=== PATIENT | male | born 1970 | race African-American/Black ===

== ENCOUNTER 2020-10-07 17:37 | Inpatient (IN) ==
[2020-10-07] MEDS ORDERED: OPTIRAY 320 125ml IV ONE (17:49)
--- NOTE | 2020-10-07 17:52 | Emergency Department Note ---
Impression & Plan Acute cerebrovascular accident, Expressive aphasia, Acute right-sided weakness, COVID-19 virus infection, Received intravenous tissue plasminogen activator (tPA) in emergency department ED Provider Note NAME: NIRMAL [id number] WINTERS AGE: 50 SEX: M : 1970 ARRIVES VIA: Ambulance INFORMANT: Patient, EMS, nurse at present ED PROVIDER(S): Kaden Hopper DO CHIEF COMPLAINT: Right-sided weakness and expressive aphasia HPI: Patient is a 50-year-old male who presents to the ER for sudden onset of right upper and right lower extremity weakness which occurred at 4:45 PM today. Is also accompanied with expressive aphasia. He has only been able to intermittently answer yes and no but not appropriately. Remainder of HPI is unobtainable secondary to mentation. Per nurse at retirement patient's only history is osteoarthritis of the right shoulder and he takes no medications. ROS: Unobtainable secondary to mentation PAST MEDICAL HISTORY:none PAST SURGICAL HISTORY:none FAMILY HISTORY:See Below SOCIAL HISTORY:See Below HOME MEDICATIONS:See Below ALLERGIES:See Below VITALS:See Below PHYSICAL EXAMINATION: GENERAL: Sitting up in bed, alert, well appearing, well nourished, no distress, non-toxic EYE EXAM: normal conjunctiva. PERRL and EOM's intact. OROPHARYNX: no exudate, no erythema, lips, buccal mucosa, and tongue normal and mucous membranes are moist NECK: supple, no nuchal rigidity, no adenopathy, non-tender LUNGS: Clear to auscultation. Normal chest wall mechanics HEART: no murmurs, S1 normal and S2 normal ABDOMEN: abdomen soft, non-tender, normo-active bowel sounds, no masses, no rebound or guarding. BACK: Back is symmetrical on inspection and there is no deformity, no midline tenderness, no CVA tenderness. SKIN: no rashes and no bruising UPPER EXTREMITIES: upper extremities are grossly normal. LOWER EXTREMITIES: No pitting edema. NEURO EXAM: Awake alert not oriented to person place or time only able to intermittently say yes/no and "this is crazy", cranial nerves II-XII intact, normal speech, no weakness of arms, no weakness of legs. No drift. Unable to perform [id number]. Gross sensation intact. MEDICAL DECISION MAKING: Patient is a 50-year-old male who presents the ER for resolved right-sided w eakness associated with expressive aphasia which occurred at 4:45 PM today and was witnessed. Received medical command call on this. Stroke alert was called. Patient was taken immediately to CT. IV was established blood work was obtained. Labs show no significant leukocytosis. Mild anemia at 11.5. INR 1.4. BMP along with LFTs bilirubin was unremarkable. Troponin was negative. UA was clean. Tox was clean. Patient was reportedly hypoxic at the present and did have multiple Covid exposures. Consequently he was placed on isolation and Covid test was obtained. CT of the head as well as CT angio of the head and neck were clean. Case was discussed with Dr. Howe from [facility] neurology who evaluated the patient in person. There is some delay as no one knew this gentleman's past medical history and I was eventually able to obtain a history from Karla from the retirement. Following this discussion with [facility] neurology after their evaluation patient was given TPA. His expressive aphasia did improve just prior to the TPA administration but he still cannot formulate sentences and carry conversation. He was able to say his name. We discussed the case with Dr. Howe and we both agreed to give TPA. tPA bolus and drip was given. Patient remained in Covid precautions as he is Covid positive. He was updated and admitted to the hospital for further medical work- up. He was monitored closely. Chest x-ray was unremarkable. Triage Nursing notes reviewed. Prior medical records reviewed Vital Signs: reviewed and remarkable for no significant abnormalities Differential diagnosis: Differential Diagnosis includes but is not limited to ischemic Stroke, hemorrhagic stroke, bells palsy, mass, neoplasm, migraine headache, seizure, subarachnoid hemorrhage, TIA, and transient global amnesia. ER treatment provided: See below Diagnostics interpreted by me: ECG: Sinus rhythm rate of [address] depression in the inferior leads QTC 425 Cardiac Monitoring: An order was placed for continuous cardiac monitoring. The monitor shows a rate of 64 with sinus rhythm. Laboratory studies: As stated above and show below. Imaging studies: CT as well as CT angio of the head and neck were negative Portable AP upright 1 view of the chest was unremarkable Consultation(s): Discussed with Dr. Renee suited for admission Discussed with Dr. Howe [facility] neurology who evaluated the patient and recommended and agreed with TPA ED COURSE: Procedures: none Critical Care: I have personally spent 75 minutes of critical care time in the direct management of this patient. This includes bedside care, interpretation of diagnostic studies, and testing, discussion with consultants, patient, and family members, and other required patient management activities. This 75 minutes is in excess of all separately billable procedures. Past Med/Surg History Social History Smoking Status: Unknown if ever smoked Feels Safe at Home: Yes Allergies Allergies Allergy/AdvReac Type Severity Reaction Status Date / Time No Known Allergies Allergy Verified 10/07/20 18:19 Home Meds Home Medications Medication Instructions Recorded Confirmed No Known Home Medications 10/07/20 10/07/20 Results & Data (ED) Vital Signs Vital Signs - 24 hr 10/07/20 17:54 10/07/20 18:00 10/07/20 18:01 Temperature 36.9 C Temperature Source Oral Pulse Rate 69 64 66 Pulse Rate [Apical] Pulse Rate from SpO2 Sensor 63 65 Respiratory Rate 18 14 18 Respiratory Effort / Characteristics Respiratory Depth Respiratory Pattern Blood Pressure 142/99 H 136/100 147/93 H Blood Pressure [Right Arm] Blood Pressure Mean 106 105 111 Blood Pressure Mean [Right Arm] Pulse Oximetry 96 100 100 Oxygen Delivery Method Room Air Oxygen Flow Rate 2 2 Sepsis Recent Fever Within 48 Hours No Sepsis New/Unexplained Change in Mental Status Yes Sepsis Action Taken by Nursing No Action Required 10/07/20 18:02 10/07/20 18:15 10/07/20 18:17 Temperature Temperature Source Pulse Rate 65 61 62 Pulse Rate [Apical] Pulse Rate from SpO2 Sensor 65 58 L 61 Respiratory Rate 12 16 16 Respiratory Effort / Characteristics Respiratory Depth Respiratory Pattern Blood Pressure 147/93 H 111/57 L Blood Pressure [Right Arm] Blood Pressure Mean 117 60 Blood Pressure Mean [Right Arm] Pulse Oximetry 99 100 Oxygen Delivery Method Oxygen Flow Rate 2 Sepsis Recent Fever Within 48 Hours Sepsis New/Unexplained Change in Mental Status Sepsis Action Taken by Nursing 10/07/20 18:18 10/07/20 18:30 10/07/20 18:31 Temperature Temperature Source Pulse Rate 62 65 61 Pulse Rate [Apical] Pulse Rate from SpO2 Sensor 62 64 61 Respiratory Rate 16 16 16 Respiratory Effort / Characteristics Respiratory Depth Respiratory Pattern Blood Pressure Blood Pressure [Right Arm] Blood Pressure Mean Blood Pressure Mean [Right Arm] Pulse Oximetry 96 99 100 Oxygen Delivery Method Oxygen Flow Rate Sepsis Recent Fever Within 48 Hours Sepsis New/Unexplained Change in Mental Status Sepsis Action Taken by Nursing 10/07/20 18:33 10/07/20 18:36 10/07/20 18:39 Temperature Temperature Source Pulse Rate 61 61 63 Pulse Rate [Apical] Pulse Rate from SpO2 Sensor 61 62 59 L Respiratory Rate 15 16 16 Respiratory Effort / Characteristics Respiratory Depth Respiratory Pattern Blood Pressure 161/102 H 143/106 H 140/86 Blood Pressure [Right Arm] Blood Pressure Mean 111 126 95 Blood Pressure Mean [Right Arm] Pulse Oximetry 99 100 100 Oxygen Delivery Method Oxygen Flow Rate Sepsis Recent Fever Within 48 Hours Sepsis New/Unexplained Change in Mental Status Sepsis Action Taken by Nursing 10/07/20 18:52 10/07/20 19:07 10/07/20 19:22 Temperature Temperature Source Pulse Rate Pulse Rate [Apical] 67 65 65 Pulse Rate from SpO2 Sensor Respiratory Rate 18 18 18 Respiratory Effort / Characteristics Respiratory Depth Normal Respiratory Pattern Blood Pressure Blood Pressure [Right Arm] 125/80 126/70 126/70 Blood Pressure Mean Blood Pressure Mean [Right Arm] 95 88 88 Pulse Oximetry 99 99 99 Oxygen Delivery Method Room Air Room Air Room Air Oxygen Flow Rate Sepsis Recent Fever Within 48 Hours Sepsis New/Unexplained Change in Mental Status Sepsis Action Taken by Nursing 10/07/20 19:37 10/07/20 19:52 10/07/20 20:07 Temperature Temperature Source Pulse Rate Pulse Rate [Apical] 63 65 65 Pulse Rate from SpO2 Sensor Respiratory Rate 20 18 18 Respiratory Effort / Characteristics Non-Labored Non-Labored Respiratory Depth Normal Normal Respiratory Pattern Blood Pressure Blood Pressure [Right Arm] 133/86 118/64 142/85 H Blood Pressure Mean Blood Pressure Mean [Right Arm] 101 82 104 Pulse Oximetry 99 99 99 Oxygen Delivery Method Room Air Room Air Room Air Oxygen Flow Rate Sepsis Recent Fever Within 48 Hours Sepsis New/Unexplained Change in Mental Status Sepsis Action Taken by Nursing 10/07/20 20:22 10/07/20 20:37 10/07/20 20:53 Temperature Temperature Source Pulse Rate Pulse Rate [Apical] 73 63 73 Pulse Rate from SpO2 Sensor Respiratory Rate 20 18 18 Respiratory Effort / Characteristics Non-Labored Spontaneous Non-Labored Respiratory Depth Normal Normal Respiratory Pattern Regular Blood Pressure Blood Pressure [Right Arm] 144/88 H 125/82 Blood Pressure Mean Blood Pressure Mean [Right Arm] 106 96 Pulse Oximetry 98 98 99 Oxygen Delivery Method Room Air Room Air Room Air Oxygen Flow Rate Sepsis Recent Fever Within 48 Hours Sepsis New/Unexplained Change in Mental Status Sepsis Action Taken by Nursing Laboratory Data Result diagrams: 10/07/20 17:53 10/07/20 17:53 Lab Results 10/07/20 10/07/20 10/07/20 Range/Units 17:53 17:53 17:53 WBC 5.11 (4.8-10.8) K/uL RBC 3.77 L (4.7-6.1) M/uL Hgb 11.5 L (14.0-18.0) g/dL Hct 34.1 L (42-52) % MCV 90.5 (80-100) fL MCH 30.5 (25-34) pg MCHC 33.7 (32-36) g/dL RDW Std Deviation 45.8 (36.4-46.3) fL RDW Coeff of Obey 13.9 (11.5-14.5) % Plt Count 295 (130-400) K/uL MPV 8.9 (7.4-10.4) fL Immature Gran % (Auto) 0.4 % Neut % (Auto) 46.0 % Lymph % (Auto) 45.4 % Lipscomb % (Auto) 6.8 % Eos % (Auto) 1.2 % Baso % (Auto) 0.2 % Neut # (Auto) 2.35 (1.4-6.5) K/uL Lymph # (Auto) 2.32 (1.2-3.4) K/uL Lipscomb # (Auto) 0.35 (0.11-0.59) K/uL Eos # (Auto) 0.06 (0-0.5) K/uL Baso # (Auto) 0.01 (0-0.2) K/uL Immature Gran # (Auto) 0.02 (0.00-0.02) K/uL PT 14.2 H (9.0-12.0) Seconds INR 1.4 H (0.9-1.1) APTT 22.9 (21.0-31.0) Seconds PTT Ratio 0.8 Sodium (136-145) mmol/L Potassium (3.5-5.1) mmol/L Chloride (98-107) mmol/L Carbon Dioxide (21-32) mmol/L Anion Gap (3-11) BUN (7-18) mg/dl Creatinine (0.6-1.4) mg/dl Est Cr Clr Drug Dosing ml/min Est GFR ( Amer) Est GFR (Non-Af Amer) BUN/Creatinine Ratio (10-20) Glucose (70-99) mg/dl POC Glucose (70-99) mg/dl Calcium (8.5-10.1) mg/dl Magnesium (1.8-2.4) mg/dl Total Bilirubin (0.2-1) mg/dl AST (15-37) U/L ALT (12-78) U/L Alkaline Phosphatase (45-117) U/L Troponin I (0-0.045) ng/ml Total Protein (6.4-8.2) gm/dl Albumin (3.4-5.0) gm/dl Globulin (2.5-4.0) gm/dl Albumin/Globulin Ratio (0.9-2) COVID-19 Eval Order SARS-CoV-2, RNA, NAAT (NEGATIVE) Blood Type A Positive Antibody Screen NEGATIVE 10/07/20 10/07/20 10/07/20 Range/Units 17:53 17:56 17:59 WBC (4.8-10.8) K/uL RBC (4.7-6.1) M/uL Hgb (14.0-18.0) g/dL Hct (42-52) % MCV (80-100) fL MCH (25-34) pg MCHC (32-36) g/dL RDW Std Deviation (36.4-46.3) fL RDW Coeff of Obey (11.5-14.5) % Plt Count (130-400) K/uL MPV (7.4-10.4) fL Immature Gran % (Auto) % Neut % (Auto) % Lymph % (Auto) % Lipscomb % (Auto) % Eos % (Auto) % Baso % (Auto) % Neut # (Auto) (1.4-6.5) K/uL Lymph # (Auto) (1.2-3.4) K/uL Lipscomb # (Auto) (0.11-0.59) K/uL Eos # (Auto) (0-0.5) K/uL Baso # (Auto) (0-0.2) K/uL Immature Gran # (Auto) (0.00-0.02) K/uL PT (9.0-12.0) Seconds INR (0.9-1.1) APTT (21.0-31.0) Seconds PTT Ratio Sodium 139 (136-145) mmol/L Potassium 4.0 (3.5-5.1) mmol/L Chloride 107 (98-107) mmol/L Carbon Dioxide 27 (21-32) mmol/L Anion Gap 5.0 (3-11) BUN 12 (7-18) mg/dl Creatinine 1.22 (0.6-1.4) mg/dl Est Cr Clr Drug Dosing 112.8 ml/min Est GFR ( Amer) 80.8 Est GFR (Non-Af Amer) 69.7 BUN/Creatinine Ratio 10.1 (10-20) Glucose 91 (70-99) mg/dl POC Glucose 91 (70-99) mg/dl Calcium 8.2 L (8.5-10.1) mg/dl Magnesium 2.0 (1.8-2.4) mg/dl Total Bilirubin 0.3 (0.2-1) mg/dl AST 18 (15-37) U/L ALT 32 (12-78) U/L Alkaline Phosphatase 48 (45-117) U/L Troponin I < 0.015 (0-0.045) ng/ml Total Protein 7.1 (6.4-8.2) gm/dl Albumin 3.5 (3.4-5.0) gm/dl Globulin 3.6 (2.5-4.0) gm/dl Albumin/Globulin Ratio 1.0 (0.9-2) COVID-19 Eval [facility] SARS-CoV-2, RNA, NAAT (NEGATIVE) Blood Type Antibody Screen 10/07/20 Range/Units 17:59 WBC (4.8-10.8) K/uL RBC (4.7-6.1) M/uL Hgb (14.0-18.0) g/dL Hct (42-52) % MCV (80-100) fL MCH (25-34) pg MCHC (32-36) g/dL RDW Std Deviation (36.4-46.3) fL RDW Coeff of Obey (11.5-14.5) % Plt Count (130-400) K/uL MPV (7.4-10.4) fL Immature Gran % (Auto) % Neut % (Auto) % Lymph % (Auto) % Lipscomb % (Auto) % Eos % (Auto) % Baso % (Auto) % Neut # (Auto) (1.4-6.5) K/uL Lymph # (Auto) (1.2-3.4) K/uL Lipscomb # (Auto) (0.11-0.59) K/uL Eos # (Auto) (0-0.5) K/uL Baso # (Auto) (0-0.2) K/uL Immature Gran # (Auto) (0.00-0.02) K/uL PT (9.0-12.0) Seconds INR (0.9-1.1) APTT (21.0-31.0) Seconds PTT Ratio Sodium (136-145) mmol/L Potassium (3.5-5.1) mmol/L Chloride (98-107) mmol/L Carbon Dioxide (21-32) mmol/L Anion Gap (3-11) BUN (7-18) mg/dl Creatinine (0.6-1.4) mg/dl Est Cr Clr Drug Dosing ml/min Est GFR ( Amer) Est GFR (Non-Af Amer) BUN/Creatinine Ratio (10-20) Glucose (70-99) mg/dl POC Glucose (70-99) mg/dl Calcium (8.5-10.1) mg/dl Magnesium (1.8-2.4) mg/dl Total Bilirubin (0.2-1) mg/dl AST (15-37) U/L ALT (12-78) U/L Alkaline Phosphatase (45-117) U/L Troponin I (0-0.045) ng/ml Total Protein (6.4-8.2) gm/dl Albumin (3.4-5.0) gm/dl Globulin (2.5-4.0) gm/dl Albumin/Globulin Ratio (0.9-2) COVID-19 Eval Order SARS-CoV-2, RNA, NAAT POSITIVE A* (NEGATIVE) Blood Type Antibody Screen Administered Medications Discontinued Medications Alteplase, Recombinant (Tpa For Stroke) 1 ea IV NOW STA; Protocol Stop: 10/07/20 18:23 Last Admin: 10/07/20 18:38 Dose: 1 ea Documented by: [id number] Alteplase, Recombinant 9 mg/ (Syringe) 9 mls @ 9 mls/min IV ONCE ONE Stop: 10/07/20 18:34 Last Admin: 10/07/20 18:37 Dose: 9 mls/min Documented by: [id number] Cosigned by: [id number] Alteplase, Recombinant 81 mg/ (EMPTY BAG) 81 mls @ 81 mls/hr IV ONCE ONE Stop: 10/07/20 18:35 Last Infusion: 10/07/20 19:40 Dose: 0 mls/hr Documented by: [id number] Cosigned by: [id number] Admin: 10/07/20 18:37 Dose: 81 mls/hr Documented by: [id number] Cosigned by: [id number] Ioversol (Optiray 320 125ml) 120 ml IV ONCE ONE Stop: 10/07/20 17:50 Last Admin: 10/07/20 17:50 Dose: 120 ml Documented by: [id number] Discharge Plan Visit Data Chief Complaint: Stroke Alert Stated Complaint: STROKE ALERT ED Provider: Kaden Hopper Discharge Problem: Acute cerebrovascular accident, Expressive aphasia, Acute right-sided weakness, COVID-19 virus infection, Received intravenous tissue plasminogen activator (tPA) in emergency department Discharge Instructions Interventions: ED Discharge Assessment Last Done: 10/07/20 23:17
--- NOTE | 2020-10-07 17:59 | CT Scan Report ---
CT SCAN OF THE BRAIN WITHOUT IV CONTRAST CLINICAL HISTORY: Lightheadedness. Facial droop. COMPARISON STUDY: No priors. TECHNIQUE: Unenhanced axial CT scan of the brain is performed from the vertex to the skull base. A d ose lowering technique was utilized adhering to the principles of ALARA. FINDINGS: Brain parenchyma: The brain parenchyma is normal in appearance. There is no hemorrhage, mass effect, or evidence of acute territorial ischemia by CT criteria. Stark-white matter differentiation is preser luis. No extra-axial fluid collection is seen. Ventricles, sulci, cisterns: Normal in configuration. Intracranial vasculature: The visualized intracranial vasculature at the skull base is normal in appe arance. Calvarium: Unremarkable. Sinuses and mastoids: The visualized paranasal sinuses are clear. The mastoid air cells are well pneu matized. Orbits: The bony orbits are grossly intact. IMPRESSION: There is no hemorrhage, mass effect, or evidence of acute territorial ischemia by CT juan nye. ACT 112: Negative or not required by law. Electronically signed by: Tal Alanis M.D. 10/07/2020 5:57 PM
[2020-10-07 18:02] LABS: Basophils # (auto) 0.01 K/uL (0-0.2); Basophils % (auto) 0.2 %; Eosinophils # (auto) 0.06 K/uL (0-0.5); Eosinophils % (auto) 1.2 %; Hematocrit (blood only) 34.1 % (42-52); Hemoglobin 11.5 g/dL (14.0-18.0); Immature Granulocytes # (auto) 0.02 K/uL (0.00-0.02); Immature Granulocytes % (auto) 0.4 %; Lymphocytes # (auto) 2.32 K/uL (1.2-3.4); Lymphocytes % (auto) 45.4 %; Mean Corpuscular Hemoglobin 30.5 pg (25-34); Mean Corpuscular Hgb Conc 33.7 g/dL (32-36); Mean Corpuscular Volume 90.5 fL (80-100); Mean Platelet Volume 8.9 fL (7.4-10.4); Monocytes # (auto) 0.35 K/uL (0.11-0.59); Monocytes % (auto) 6.8 %; Neutrophils # (auto) 2.35 K/uL (1.4-6.5); Platelet Count 295 K/uL (130-400); RDW Coefficient of Variation 13.9 % (11.5-14.5); RDW Standard Deviation 45.8 fL (36.4-46.3); Red Blood Count 3.77 M/uL (4.7-6.1); White Blood Count 5.11 K/uL (4.8-10.8)
--- NOTE | 2020-10-07 18:08 | CT Scan Report ---
CT ANGIOGRAM OF THE BRAIN; CT ANGIOGRAM OF THE NECK CLINICAL HISTORY: Lightheadedness. Facial droop. COMPARISON STUDY: Unenhanced CT of the brain performed concurrently on 10/07/2020. TECHNIQUE: Following the IV administration of 118 of Optiray 320, CT angiogram of the head and neck w as performed from the aortic arch to the vertex. Images are reviewed in the axial, sagittal, and pedrito nal planes. 3-D MIPS images are created and assessed. IV contrast was administered without complicati on. All measurements were calculated based on NASCET criteria. A dose lowering technique was utilize d adhering to the principles of ALARA. CT DOSE: 1250.25 mGy.cm FINDINGS: Brain parenchyma: The brain parenchyma is normal in appearance. There is no hemorrhage, mass effect, or evidence of acute territorial ischemia by CT criteria. There is no evidence of enhancing mass lesi on on the angiogram phase images. The ventricles, sulci, and cisterns are normal in configuration. Gr ay-white matter differentiation is preserved. No extra-axial fluid collection is seen. Thoracic aorta: Visualized portions of the thoracic aorta are normal in caliber. The aortic arch demo nstrates standard 3-vessel anatomy. Right carotid arterial system: The right common carotid artery is widely patent, as are the right int ernal and external carotid arteries. Left carotid arterial system: The left common carotid artery is widely patent, as are the left physician general internal medicine al and external carotid arteries. Soft plaque is noted at the origin of the left internal carotid art lorenza. Vertebral arteries: Patent bilaterally noting a right-sided dominance. Subclavian arteries: Widely patent bilaterally. Intracranial vasculature: There is a large left posterior communicating artery. The internal carotid arteries are patent at the skull base, as are the anterior and middle cerebral arteries bilaterally. The vertebrobasilar system and posterior cerebral arteries are widely patent. The right vertebral art lorenza is dominant. There is no aneurysm, high-grade stenosis, or focal vessel cut off seen throughout t he intracranial circulation. Jugular veins: Patent bilaterally. Dural sinuses: Patent. Lung apices: Mild emphysematous change is noted at the lung apices. Upper lobe lung parenchyma is oth erwise clear as imaged. Soft tissues: The visualized pharyngeal soft tissues are normal in appearance noting angiographic pha se technique. The oropharyngeal airway appears widely patent. The salivary and thyroid glands are nor mal in appearance. No cervical lymphadenopathy is seen. Skeletal structures: The calvarium appears intact. The cervical spine is within normal limits. Sinuses and mastoids: The paranasal sinuses are clear. The mastoid air cells are well pneumatized. IMPRESSION: 1. There is no hemorrhage, mass effect, or evidence of acute territorial ischemia by CT criteria noti ng angiographic phase technique. 2. Unremarkable CT angiogram of the brain. 3. Unremarkable CT angiogram of the neck. ACT 112: Negative or not required by law. Electronically signed by: Tal Alanis M.D. 10/07/2020 6:06 PM
[2020-10-07 18:11] LABS: INR 1.4 (0.9-1.1); Partial Thromboplastin Ratio 0.8; Partial Thromboplastin Time 22.9 Seconds (21.0-31.0); Prothrombin Time 14.2 Seconds (9.0-12.0)
[2020-10-07 18:19] LABS: Alanine Aminotransferase 32 U/L (12-78); Albumin Level 3.5 gm/dl (3.4-5.0); Aspartate Aminotransferase 18 U/L (15-37); BUN Creatinine Ratio 10.1 (10-20); Blood Urea Nitrogen 12 mg/dl (7-18); Calcium 8.2 mg/dl (8.5-10.1); Carbon Dioxide 27 mmol/L (21-32); Chloride 107 mmol/L (98-107); Creatinine Clr Calc Pharmacy 112.8 ml/min; Est GFR (African American) 80.8; Est GFR (Non-African American) 69.7; Glucose 91 mg/dl (70-99); Sodium 139 mmol/L (136-145)
[2020-10-07] MEDS ORDERED: TPA for Stroke IV STA (18:22)
[2020-10-07 18:24] LABS: Alkaline Phosphatase 48 U/L (45-117); Bilirubin,Total 0.3 mg/dl (0.2-1); Globulin 3.6 gm/dl (2.5-4.0); Total Protein 7.1 gm/dl (6.4-8.2); Troponin I < 0.015 ng/ml (0-0.045)
[2020-10-07] MEDS ORDERED: No Aspirin within 24 hrs of TPA for Stroke PO SCH (18:30)
[2020-10-07] MEDS ORDERED: Alteplase Bolus 9 MG in SYRINGE 0 ML IV ONE (18:33)
[2020-10-07] MEDS ORDERED: ALTEPLASE, RECOMBINANT 81 MG in EMPTY BAG 0 ML IV ONE (18:34)
[2020-10-07] MEDS ORDERED: PRIMARY PLUMSET, PE LINED TUBING, 113 IN, NON-DEHP (2260-0500) IV ONE (18:34)
--- NOTE | 2020-10-07 19:41 | XRay Report ---
SINGLE VIEW CHEST CLINICAL HISTORY: Hypoxia. FINDINGS: 2 AP, portable, upright chest radiographs are obtained. No prior studies are available for comparison at the time of dictation. The examination is degraded by portable technique and patient ro tation. The heart is top normal for projection. There is mild elevation of the left hemidiaphragm wi th associated atelectasis. The lungs and pleural spaces are otherwise clear. No pneumothorax is seen. The bony thorax is grossly intact. IMPRESSION: No active disease in the chest. ACT 112: Negative or not required by law. Electronically signed by: Tal Alanis M.D. 10/07/2020 7:39 PM
--- NOTE | 2020-10-07 21:07 | History & Physical Report ---
Date of Service October 07, 2020 Assessment & Plan (1) Admitted to intensive care unit: Admit to the intensive care unit status post ministration of TPA in the emergency department for acute CVA Present on Admission?: Yes (2) Acute cerebrovascular accident: Acute CVA involving expressive aphasia and acute right upper and right lower extremity weakness. Received IV TPA in the emergency department. Admit with stroke with TPA first 24 hours protocol order set to the ICU Present on Admission?: Yes (3) Expressive aphasia: Persistent following administration of TPA at early assessment. Present on Admission?: Yes (4) Acute right-sided weakness: Notation per initial ED assessment, and compared to my assessment, appears to be slowly improving Present on Admission?: Yes (5) COVID-19 virus infection: No signs of hypoxia. Question as to whether increased coagulation associated with COVID-19 virus infection contributed to or caused CVA Place on Decadron 6 mg IV daily. No indication for convalescent plasma or IV remdesivir. Present on Admission?: Yes (6) Received intravenous tissue plasminogen activator (tPA) in emergency department: Admit per stroke with TPA first 24-hour protocol order set Present on Admission?: Yes History of Present Illness Chief Complaint: The patient presents to the emergency department with acute onset of right upper and right lower extremity weakness, and expressive aphasia which began at 4:45 PM this afternoon Primary Care Provider: DEBORAH Benoit The patient is a 50-year-old male resident of [facility] who presented to the [facility] there with the above symptoms. He was made a stroke alert in route to the emergency department. Work-up included a CT of head which was negative, CTA head and neck which was negative, and after assessment by [facility] telestroke neurology, patient was given TPA while in the ED. He did have some improvement and the weakness, but his expressive aphasia has been persistent Allergies Allergy/AdvReac Type Severity Reaction Status Date / Time No Known Allergies Allergy Verified 10/07/20 18:19 Home Medications Medication Instructions Recorded Confirmed Type No Known Home Medications 10/07/20 10/07/20 History Past Med/Surg History Social History Smoking Status: Unknown if ever smoked Feels Safe at Home: Yes Review of Systems Review of Systems: Unobtainable due to cognitive status Physical Exam Physical Exam: The patient is awake, nods his head and answers yes to all questions, well developed and well nourished, normocephalic and atraumatic, lying in bed and in no acute distress. HEENT--PERRL, EOMI, mucous membranes and oropharynx normal Neck--supple. No JVD. No bruits. Thyroid normal, trachea midline, no adenopathy. Heart--normal S1 and S2. No murmurs, rubs or gallops. Lungs--clear bilaterally, no respiratory distress, no accessory muscle use. Abdomen--normal bowel sounds and soft. Nontender. Nondistended. Extremities--no cyanosis or clubbing. No edema. Dermatologic--normal skin turgor, normal color, no abnormal lymph nodes, no rash. Neurologic/rheumatologic--cranial nerves II through XII grossly intact. Sensation intact upper lower extremities. Right upper extremity and right lower extremity 4+/5. Left upper and lower extremity 5/ 5 Psychiatric--normal affect. Results & Data Results & Data ([facility]) Vital Signs (Past 12 Hours) Vital Signs Temp Pulse Pulse Resp BP BP Pulse Ox 10/07/20 21:00 70 18 140/81 99 10/07/20 20:53 73 18 99 10/07/20 20:37 63 18 125/82 98 10/07/20 20:22 73 20 144/88 H 98 10/07/20 20:07 65 18 142/85 H 99 10/07/20 19:52 65 18 118/64 99 10/07/20 19:37 63 20 133/86 99 10/07/20 19:22 65 18 126/70 99 10/07/20 19:07 65 18 126/70 99 10/07/20 18:52 67 18 125/80 99 10/07/20 18:39 63 16 140/86 100 10/07/20 18:36 61 16 143/106 H 100 10/07/20 18:33 61 15 161/102 H 99 10/07/20 18:31 61 16 100 10/07/20 18:30 65 16 99 10/07/20 18:18 62 16 96 10/07/20 18:17 62 16 111/57 L 100 10/07/20 18:15 61 16 10/07/20 18:02 65 12 147/93 H 99 10/07/20 18:01 98.4 F 66 18 147/93 H 100 10/07/20 18:00 64 14 136/100 100 10/07/20 17:54 69 18 142/99 H 96 Laboratory Results Laboratory Results WBC 5.11 K/uL (4.8-10.8) 10/07/20 17:53 RBC 3.77 M/uL (4.7-6.1) L 10/07/20 17:53 Hgb 11.5 g/dL (14.0-18.0) L 10/07/20 17:53 Hct 34.1 % (42-52) L 10/07/20 17:53 MCV 90.5 fL (80-100) 10/07/20 17:53 MCH 30.5 pg (25-34) 10/07/20 17:53 MCHC 33.7 g/dL (32-36) 10/07/20 17:53 RDW Std Deviation 45.8 fL (36.4-46.3) 10/07/20 17:53 RDW Coeff of Obey 13.9 % (11.5-14.5) 10/07/20 17:53 Plt Count 295 K/uL (130-400) 10/07/20 17:53 MPV 8.9 fL (7.4-10.4) 10/07/20 17:53 Immature Gran % (Auto) 0.4 % 10/07/20 17:53 Neut % (Auto) 46.0 % 10/07/20 17:53 Lymph % (Auto) 45.4 % 10/07/20 17:53 Dewitt % (Auto) 6.8 % 10/07/20 17:53 Eos % (Auto) 1.2 % 10/07/20 17:53 Baso % (Auto) 0.2 % 10/07/20 17:53 Neut # (Auto) 2.35 K/uL (1.4-6.5) 10/07/20 17:53 Lymph # (Auto) 2.32 K/uL (1.2-3.4) 10/07/20 17:53 Dewitt # (Auto) 0.35 K/uL (0.11-0.59) 10/07/20 17:53 Eos # (Auto) 0.06 K/uL (0-0.5) 10/07/20 17:53 Baso # (Auto) 0.01 K/uL (0-0.2) 10/07/20 17:53 Immature Gran # (Auto) 0.02 K/uL (0.00-0.02) 10/07/20 17:53 PT 14.2 Seconds (9.0-12.0) H 10/07/20 17:53 INR 1.4 (0.9-1.1) H 10/07/20 17:53 APTT 22.9 Seconds (21.0-31.0) 10/07/20 17:53 PTT Ratio 0.8 10/07/20 17:53 Sodium 139 mmol/L (136-145) 10/07/20 17:53 Potassium 4.0 mmol/L (3.5-5.1) 10/07/20 17:53 Chloride 107 mmol/L (98-107) 10/07/20 17:53 Carbon Dioxide 27 mmol/L (21-32) 10/07/20 17:53 Anion Gap 5.0 (3-11) 10/07/20 17:53 BUN 12 mg/dl (7-18) 10/07/20 17:53 Creatinine 1.22 mg/dl (0.6-1.4) 10/07/20 17:53 Est Cr Clr Drug Dosing 112.8 ml/min 10/07/20 17:53 Est GFR ( Amer) 80.8 10/07/20 17:53 Est GFR (Non-Af Amer) 69.7 10/07/20 17:53 BUN/Creatinine Ratio 10.1 (10-20) 10/07/20 17:53 Glucose 91 mg/dl (70-99) 10/07/20 17:53 POC Glucose 91 mg/dl (70-99) 10/07/20 17:56 Calcium 8.2 mg/dl (8.5-10.1) L 10/07/20 17:53 Magnesium 2.0 mg/dl (1.8-2.4) 10/07/20 17:53 Total Bilirubin 0.3 mg/dl (0.2-1) 10/07/20 17:53 AST 18 U/L (15-37) 10/07/20 17:53 ALT 32 U/L (12-78) 10/07/20 17:53 Alkaline Phosphatase 48 U/L (45-117) 10/07/20 17:53 Troponin I < 0.015 ng/ml (0-0.045) 10/07/20 17:53 Total Protein 7.1 gm/dl (6.4-8.2) 10/07/20 17:53 Albumin 3.5 gm/dl (3.4-5.0) 10/07/20 17:53 Globulin 3.6 gm/dl (2.5-4.0) 10/07/20 17:53 Albumin/Globulin Ratio 1.0 (0.9-2) 10/07/20 17:53 Urine Color Yellow 10/07/20 21:00 Urine Appearance Clear (Clear) 10/07/20 21:00 Urine pH 6.5 (4.5-7.5) 10/07/20 21:00 Ur Specific [place] 1.040 (1.000-1.030) H 10/07/20 21:00 Urine Protein Negative (Negative) 10/07/20 21:00 Urine Glucose (UA) Negative (Negative) 10/07/20 21:00 Urine Ketones Negative (Negative) 10/07/20 21:00 Urine Blood Negative (Negative) 10/07/20 21:00 Urine Nitrite Negative (Negative) 10/07/20 21:00 Urine Bilirubin Negative (Negative) 10/07/20 21:00 Urine Urobilinogen Negative (Negative) 10/07/20 21:00 Ur Leukocyte Esterase Negative (Negative) 10/07/20 21:00 Urine Opiates Screen Neg (Neg) 10/07/20 21:00 Ur Methadone, Qual Neg (Neg) 10/07/20 21:00 Urine Barbiturates Neg (Neg) 10/07/20 21:00 Ur Phencyclidine (PCP) Neg (Neg) 10/07/20 21:00 U Amphetamin/Meth Scrn Neg (Neg) 10/07/20 21:00 MDMA (Ecstasy) Screen Neg (Neg) 10/07/20 21:00 U Benzodiazepines Scrn Neg (Neg) 10/07/20 21:00 Ur Cocaine Metabolite Neg (Neg) 10/07/20 21:00 U Marijuana (THC) Screen Neg (Neg) 10/07/20 21:00 COVID-19 Eval Order Covid19 [facility]Now [facility] 10/07/20 17:59 SARS-CoV-2, RNA, NAAT POSITIVE (NEGATIVE) A* 10/07/20 17:59 Blood Type A Positive 10/07/20 17:53 Antibody Screen NEGATIVE 10/07/20 17:53 Diagnostic Findings [facility], [id number] XRay Report Patient: NIRMAL WINTERS [id number] Date: 10/07/20MR#: [id number]: BOX AAcct ID:[id number]: [facility] 1970[facility] Zip[facility] [place], [place] [address]Jle: 50Location: EDSex: MRoom/Bed:Att Phy:Diagnosis: STROKE ALERTPri Phy: SCI RockviewService Date: 10/07/20Fa Phy:Interpreting Phy: Tal Alanis MDAdmit Phy: Ordering Phy: Kaden Hopper DO cc: ~ SINGLE VIEW CHEST CLINICAL HISTORY: Hypoxia. FINDINGS: 2 AP, portable, upright chest radiographs are obtained. No prior studies are available for comparison at the time of dictation. The examination is degraded by portable technique and patient rotation. The heart is top normal for projection. There is mild elevation of the left hemidiaphragm with associated atelectasis. The lungs and pleural spaces are otherwise clear. No pneumothorax is seen. The bony thorax is grossly intact. IMPRESSION: No active disease in the chest. ACT 112: Negative or not required by law. Electronically signed by: Tal Alanis M.D. 10/07/2020 7:39 PM Dictated: 10/07/201937Transcribed: 10/07/201937 [facility], [id number] CT Scan Report Patient: NIRMAL WINTERS [id number] Date: 10/07/20MR#: [id number]: BOX AAcct ID:[id number]: [facility] 1970[facility] Zip: [place], [place] [address]Rne: 50Location: EDSex: MRoom/Bed:Att Phy:Diagnosis: STROKE ALERTPri Phy: SCI RockviewService Date: 10/07/20Fa Phy:Interpreting Phy: Tal Alanis MDAdmit Phy: Ordering Phy: Kaden Hopper DO cc: ~ CT SCAN OF THE BRAIN WITHOUT IV CONTRAST CLINICAL HISTORY: Lightheadedness. Facial droop. COMPARISON STUDY: No priors. TECHNIQUE: Unenhanced axial CT scan of the brain is performed from the vertex to the skull base. A dose lowering technique was utilized adhering to the principles of ALARA. FINDINGS: Brain parenchyma: The brain parenchyma is normal in appearance. There is no hemorrhage, mass effect, or evidence of acute territorial ischemia by CT criteria. Stark-white matter differentiation is preserved. No extra-axial fluid collection is seen. Ventricles, sulci, cisterns: Normal in configuration. Intracranial vasculature: The visualized intracranial vasculature at the skull base is normal in appearance. Calvarium: Unremarkable. Sinuses and mastoids: The visualized paranasal sinuses are clear. The mastoid air cells are well pneumatized. Orbits: The bony orbits are grossly intact. IMPRESSION: There is no hemorrhage, mass effect, or evidence of acute territorial ischemia by CT criteria. ACT 112: Negative or not required by law. Electronically signed by: Tal Alanis M.D. 10/07/2020 5:57 PM Dictated: 10/07/201755Transcribed: 10/07/201755 [facility], [id number] CT Scan Report Patient: NIRMAL WINTERS [id number] Date: 10/07/20MR#: [id number]: BOX AAcct ID:[id number]: [facility] 1970[facility] Zip: [place] [address]Hxp: 50Location: EDSex: MRoom/Bed:Att Phy:Diagnosis: STROKE ALERTPri Phy: SCI RockviewService Date: 10/07/20Fa Phy:Interpreting Phy: Tal Alanis MDAdmit Phy: Ordering Phy: Kaden Hopper DO cc: ~ CT ANGIOGRAM OF THE BRAIN; CT ANGIOGRAM OF THE NECK CLINICAL HISTORY: Lightheadedness. Facial droop. COMPARISON STUDY: Unenhanced CT of the brain performed concurrently on 10/07/2020. TECHNIQUE: Following the IV administration of 118 of Optiray 320, CT angiogram of the head and neck was performed from the aortic arch to the vertex. Images are reviewed in the axial, sagittal, and coronal planes. 3-D MIPS images are created and assessed. IV contrast was administered without complication. All measurements were calculated based on NASCET criteria. A dose lowering technique was utilized adhering to the principles of ALARA. CT DOSE: 1250.25 mGy.cm FINDINGS: Brain parenchyma: The brain parenchyma is normal in appearance. There is no hemorrhage, mass effect, or evidence of acute territorial ischemia by CT criteria. There is no evidence of enhancing mass lesion on the angiogram phase images. The ventricles, sulci, and cisterns are normal in configuration. Stark- white matter differentiation is preserved. No extra-axial fluid collection is seen. Thoracic aorta: Visualized portions of the thoracic aorta are normal in caliber. The aortic arch demonstrates standard 3-vessel anatomy. Right carotid arterial system: The right common carotid artery is widely patent, as are the right internal and external carotid arteries. Left carotid arterial system: The left common carotid artery is widely patent, as are the left internal and external carotid arteries. Soft plaque is noted at the origin of the left internal carotid artery. Vertebral arteries: Patent bilaterally noting a right-sided dominance. Subclavian arteries: Widely patent bilaterally. Intracranial vasculature: There is a large left posterior communicating artery. The internal carotid arteries are patent at the skull base, as are the anterior and middle cerebral arteries bilaterally. The vertebrobasilar system and posterior cerebral arteries are widely patent. The right vertebral artery is dominant. There is no aneurysm, high-grade stenosis, or focal vessel cut off seen throughout the intracranial circulation. Jugular veins: Patent bilaterally. Dural sinuses: Patent. Lung apices: Mild emphysematous change is noted at the lung apices. Upper lobe lung parenchyma is otherwise clear as imaged. Soft tissues: The visualized pharyngeal soft tissues are normal in appearance noting angiographic phase technique. The oropharyngeal airway appears widely patent. The salivary and thyroid glands are normal in appearance. No cervical lymphadenopathy is seen. Skeletal structures: The calvarium appears intact. The cervical spine is within normal limits. Sinuses and mastoids: The paranasal sinuses are clear. The mastoid air cells are well pneumatized. IMPRESSION: 1. There is no hemorrhage, mass effect, or evidence of acute territorial ischemia by CT criteria noting angiographic phase technique. 2. Unremarkable CT angiogram of the brain. 3. Unremarkable CT angiogram of the neck. ACT 112: Negative or not required by law. Electronically signed by: Tal Alanis M.D. 10/07/2020 6:06 PM Dictated: 10/07/201757Transcribed: 10/07/201757 Code Status & VTE Plan Code Status Full code VTE Prophylaxis Plan VTE Prophylaxis will be ordered: Yes Critical Care Time Critical Care Time: Yes Total Critical Care Time: 45 PG Care Time/CCT Total # of Minutes Spent Total Time Spent with Patient: Total time spent is greater than 50% in coordination of care (as documented) at patient's floor/unit and/or counseling patient: Critical Care Time: Yes Total Critical Care Time: 45 Coding Level of Care Code 42604 Initial Inpt Care Lvl 3 Diagnoses Admitted to intensive care unit Z78.9 Acute cerebrovascular accident I63.9 Expressive aphasia R47.01 Acute right-sided weakness R53.1 COVID-19 virus infection U07.1 Received intravenous tissue plasminogen activator (tPA) in emergency department Z92.82 Additional Codes Critical Care Time - Critical Care Time: Yes ([id number]) Time Spent (min) 45
[2020-10-07 21:50] LABS: Amphetamines+Metham, Urine Neg (Neg); Barbiturates, Urine Neg (Neg); Benzodiazepine, Urine Neg (Neg); Cocaine, Urine Neg (Neg); MDMA (Ecstacy), Urine Neg (Neg); Methadone, Urine Neg (Neg); Opiate, Urine Neg (Neg); Phencyclidine, Urine Neg (Neg)
[2020-10-07 21:55] LABS: Appearance Urine Clear (Clear); Bilirubin Urine Negative (Negative); Blood Urine Negative (Negative); Color Urine Yellow; Glucose Urine UA Negative (Negative); Ketones Urine Negative (Negative); Leukocyte Esterase Urine Negative (Negative); Nitrite Urine Negative (Negative); Protein Urine Negative (Negative); Urobilinogen Urine Negative (Negative); pH Urine 6.5 (4.5-7.5)
--- NOTE | 2020-10-07 23:44 | Critical Care Consultation ---
Date of Consultation October 07, 2020 Assessment & Plan (1) Admitted to intensive care unit: Reason Critically Ill: 50-year-old male with acute ischemic CVA with RIGHT-sided flaccid paralysis and expressive aphasia status post TPA in the emergency department requiring close hemodynamic monitoring status post TPA administration. Incidentally, the patient found to be COVID-19 positive requiring isolation precautions. NEURO - * CAM ICU: NEGATIVE * CVA: * Presents with RIGHT-sided flaccid paralysis and expressive aphasia. * CT as well as CTA of head/neck without acute findings. * Status post TPA. * Post 24-hour TPA order set in place. * CTA should suffice at this point. Hold off on MRI, particular in the setting of COVID-19 positive status. * Agree with echocardiogram. * Patient shown improvement with equal strength bilaterally of the upper and lower extremities. * Patient is experiencing muscle like spasms of the upper lower extremities. * Still with decreased sensation to the RIGHT upper and lower extremities. * Expressive aphasia persists as patient continues to make nonsensical comments. Interestingly, the patient does not appear to recognize his words are not appropriate. Did have an extensive conversation with him regarding this and encouraged to report any new physical changes he is appreciated. * Frequent neuro checks per policy. CARDIAC/VASCULAR - * No history of hypertension or coronary artery disease. * EKG: Normal sinus rhythm at [address] or T wave changes. QTc 425 ms * Monitor on telemetry. RESPIRATORY - * No history of pulmonary disease. GI/NUTRITION - * Swallow study evaluation. * Progress diet as tolerated. RENAL/LYTES - * No significant electrolyte derangements. - * No concerns at this time. ENDO - * No history of diabetes or thyroid disease. * BSGs per unit protocol. ISS --> gtt per unit policy. HEME - * Stable H&H. * Monitor for bleeding status post TPA administration ID - * COVID-19 infection. * Patient certainly is high risk as he is living at [facility] with high influx of COVID-19 infections. * Monitoring closely for any changes in clinical status. * No need for antibiotic coverage this time. * No indication for remdesivir or convalescent plasma. LINES/IV ACCESS - * PIVs x2 DVT PROPHYLAXIS - * Hold on chemoprophylaxis status post TPA administration. * SCDs Thank you for allowing us to participate in the care of this patient. Please refer to my attending physician's documentation for any further recommendations. (2) Acute cerebrovascular accident: (3) Expressive aphasia: (4) Acute right-sided weakness: (5) COVID-19 virus infection: (6) Received intravenous tissue plasminogen activator (tPA) in emergency department: History of Present Illness Attending Physician: Marcus Roman MD History of Present Illness Patient is a 50-year-old incarcerated gentleman with no reported past medical history who presented to the emergency department with acute onset of RIGHT- sided flaccid paralysis with expressive aphasia. He underwent CT of the head as well as CTA of head and neck without concerns for hemorrhage. Patient received TPA in the emergency department. Patient showed improvement of range of motion and strength of the RIGHT upper and lower extremities, but is with persistent expressive aphasia. Patient was screened for COVID-19 and found to be positive as well. He does live in a high risk environment at [facility]. Thankfully, to this point, he denies any complaints of fever, anosmia, diarrhea, cough, shortness of breath, etc. Upon arrival in the ICU, the patient is awake, alert, and oriented. He does provide historical information, however he does perseverate with nonsensical words. He is able to ask some simple questions and is able to answer yes and no questions appropriately. Otherwise, HPI is limited secondary to expressive aphasia. Allergies Allergy/AdvReac Type Severity Reaction Status Date / Time No Known Allergies Allergy Verified 10/07/20 18:19 Home Medications Medication Instructions Recorded Confirmed Type No Known Home Medications 10/07/20 10/07/20 History Patient History Social History Smoking Status: Unknown if ever smoked Hx Alcohol Use: No Hx Substance Use: No Preferred Language: Israeli Communication Ability: Impaired Food Service Aide Required: No Beliefs That Will Affect Care: None Current Living Situation: Other Current Living Situation Comment: [facility] Feels Safe at Home: Yes Assistive Devices: None Review of Systems Review of Systems: A complete 10 point review of systems was reviewed with the patient with pertinent positives and negatives as per history of present illness. All else were negative. Physical Exam Physical Exam: VITAL SIGNS - Vital signs and nursing notes were reviewed. GENERAL - 50-year-old male appearing his stated age who is in no acute distress. HEAD - Normocephalic, Atraumatic. No Segovia's Sign or Raccoon's Eyes. No depressed skull fractures palpable. EYES - PERRL with EOMI bilaterally. Sclera anicteric. Palpebral conjunctiva pink and moist with no injection noted. EARS - No deformities of external structures noted on gross examination bilaterally. NOSE - Midline and without cyanosis. No epistaxis or purulent drainage noted. MOUTH/OROPHARYNX - Without perioral cyanosis. Buccal mucosa pink and moist and without leukoplakia. Tongue midline with equal elevation of palate bilaterally. No tonsillar hypertrophy, erythema, or exudates noted. Good dentition noted. NECK - Neck with FROM. Supple to palpation. No lymphadenopathy noted. No nuchal rigidity. LUNGS - Chest wall symmetric without accessory muscle use, intercostals retractions, or central cyanosis. Normal vesicular breath sounds CTA B/L. No wheezes, rales, or rhonchi appreciated. CARDIAC - RRR with S1/S2. No murmur, rubs, or gallops appreciated. ABDOMEN - Abdominal contour flat without pulsations or visible masses. BS normoactive all four quadrants. No tenderness, palpable masses, hepatosplenomegaly, or ascites noted. EXTREMITIES - No pretibial edema present. +3/5 radial and dorsalis pedis pulses palpated throughout. Spontaneous movements of the RIGHT upper and lower extremities appreciated. +5/5 strength appreciated bilaterally. NEUROLOGIC - Cranial nerves II through XII grossly intact. Decreased sensation to the RIGHT upper and lower extremities. Negative Pronator Drift. Patient with persistent expressive aphasia and perseveration of nonsensical words. PSYCH -patient is awake, alert, and oriented. Limited secondary to expressive aphasia. Results & Data Results & Data ([facility]) Vital Signs (Past 12 Hours) Vital Signs Temp Pulse Pulse Resp BP BP Pulse Ox 10/07/20 23:00 68 18 139/87 99 10/07/20 22:30 64 18 140/83 99 10/07/20 22:00 64 20 123/82 99 10/07/20 21:30 64 18 130/83 99 10/07/20 21:00 70 18 140/81 99 10/07/20 20:53 73 18 99 10/07/20 20:37 63 18 125/82 98 10/07/20 20:22 73 20 144/88 H 98 10/07/20 20:07 65 18 142/85 H 99 10/07/20 19:52 65 18 118/64 99 10/07/20 19:37 63 20 133/86 99 10/07/20 19:22 65 18 126/70 99 10/07/20 19:07 65 18 126/70 99 10/07/20 18:52 67 18 125/80 99 10/07/20 18:39 63 16 140/86 100 10/07/20 18:36 61 16 143/106 H 100 10/07/20 18:33 61 15 161/102 H 99 10/07/20 18:31 61 16 100 10/07/20 18:30 65 16 99 10/07/20 18:18 62 16 96 10/07/20 18:17 62 16 111/57 L 100 10/07/20 18:15 61 16 10/07/20 18:02 65 12 147/93 H 99 10/07/20 18:01 36.9 C 66 18 147/93 H 100 10/07/20 18:00 64 14 136/100 100 10/07/20 17:54 69 18 142/99 H 96 Coding Level of Care Code 49959 Inpt Consult Level 5 Diagnoses Admitted to intensive care unit Z78.9 Acute cerebrovascular accident I63.9 Expressive aphasia R47.01 Acute right-sided weakness R53.1 COVID-19 virus infection U07.1 Received intravenous tissue plasminogen activator (tPA) in emergency department Z92.82 Time Spent (min) 45
[2020-10-07] MEDS ORDERED: DEXAMETHASONE SOD PHOSPHATE 6 MG in SYRINGE 0 ML IV ONE (23:45)
[2020-10-07] MEDS ORDERED: ICU PROTOCOL FOR HYPERGLYCEMIA PRN (23:49)
[2020-10-07] MEDS ORDERED: PHARMACIST DISCHARGE MED REC CONSULT PRN (23:49)
[2020-10-07] MEDS ORDERED: DEXAMETHASONE SOD INJ 10 MG/ML VIAL IV ONE (23:49)
[2020-10-07] MEDS ORDERED: NSS + 20MEQ KCL 20 MEQ/1,000 ML BAG IV SCH (23:49)
[2020-10-08] MEDS: FAMOTIDINE 20 MG in SYRINGE 3 ML IV SCH ×3 (01:40→23:32)
--- NOTE | 2020-10-08 08:05 | Critical Care Progress Note ---
Date of Service October 08, 2020 Assessment & Plan (1) Admitted to intensive care unit: Reason Critically Ill: 50-year-old male with acute ischemic CVA with RIGHT-sided flaccid paralysis and expressive aphasia status post TPA in the emergency department requiring close hemodynamic monitoring status post TPA administration. Incidentally, the patient found to be COVID-19 positive requiring isolation precautions. NEURO - * CAM ICU: NEGATIVE * CVA: * Neuro consult is pending. Echocardiogram is pending. MRI is pending. Will need CT chest 24 status post TPA. Will need speech consult, PT and OT. CARDIAC/VASCULAR - * No history of hypertension or coronary artery disease. * EKG: Normal sinus rhythm at [address] or T wave changes. QTc 425 ms * Monitor on telemetry. * Echo as above RESPIRATORY - * No history of pulmonary disease. GI/NUTRITION - * Swallow study evaluation. * Progress diet as tolerated. RENAL/LYTES - * No significant electrolyte derangements. - * No concerns at this time. ENDO - * No history of diabetes or thyroid disease. * BSGs per unit protocol. ISS --> gtt per unit policy. HEME - * Stable H&H. * Monitor for bleeding status post TPA administration * If no evidence of head bleed on repeat CT head, will start Lovenox and aspirin. ID - * COVID-19 infection. * No indication for therapy at this time. COVID-19 was an incidental finding. I am going to stop the Decadron. LINES/IV ACCESS - * PIVs x2 DVT PROPHYLAXIS - * Lovenox later today if no evidence of bleeding on CT head. * SCDs He will likely be able to be transferred to the floor later today after CT head. (2) Acute cerebrovascular accident: (3) Expressive aphasia: (4) Acute right-sided weakness: (5) COVID-19 virus infection: (6) Received intravenous tissue plasminogen activator (tPA) in emergency department: Admission and Anticipated Discharge Date Admission Date: October 07, 2020 Subjective Patient is feeling much better today. His speech is still quite garbled. He notes that his right hand weakness has improved. He denies any complaint currently. His left hand shackled to the bed. Review of Systems Review of Systems: All systems reviewed & are unremarkable except as noted in HPI & below Physical Exam Constitutional: WD/WN, vitals as above Eyes: PERRL, conjunctivae normal, anicteric sclerae ENMT: external ear and nose normal, oropharynx normal Respiratory: normal respiratory effort, lungs clear to auscultation Cardiovascular: RRR, no murmur, no edema Gastrointestinal (Abdomen): normal bowel sounds, soft, nontender, no hepatosplenomegaly Musculoskeletal: no cyanosis or clubbing, extremities motor strength 5/5 Skin: no rashes, warm and dry Neurologic: PERRL, EOMI, accommodation nl, no face palsy, no dysarthria Garbled speech is present. Psychiatric: A+Ox3, euthymic affect Results & Data Results & Data ([facility]) Vital Signs (Past 12 Hours) Vital Signs Temp Pulse Pulse Resp BP BP BP 10/08/20 06:31 98.4 F 58 L 58 L 18 119/75 119/75 10/08/20 06:30 60 14 10/08/20 06:01 64 15 138/86 10/08/20 06:00 65 12 10/08/20 05:31 98.4 F 65 65 17 129/80 129/80 10/08/20 05:30 98.4 F 66 19 10/08/20 05:02 59 L 17 10/08/20 05:01 58 L 17 130/80 10/08/20 05:00 58 L 16 10/08/20 04:31 98.6 F 65 65 16 129/80 129/80 10/08/20 04:30 63 16 10/08/20 04:02 64 15 10/08/20 04:01 67 16 143/85 H 10/08/20 04:00 64 18 10/08/20 03:31 98.8 F 73 73 24 143/100 H 143/100 H 10/08/20 03:30 68 17 10/08/20 03:01 69 17 136/91 10/08/20 03:00 64 17 10/08/20 02:32 65 16 10/08/20 02:31 98.8 F 63 63 16 131/86 131/86 10/08/20 02:30 64 17 10/08/20 02:02 63 16 10/08/20 02:01 98.8 F 62 62 16 127/80 127/80 10/08/20 02:00 62 17 10/08/20 01:31 99.0 F 74 74 19 140/94 140/94 12/03/20 01:30 73 20 10/08/20 01:03 99.1 F 63 16 10/08/20 01:02 66 17 124/84 10/08/20 01:01 99.1 F 66 66 16 127/86 127/86 10/08/20 01:00 63 16 10/08/20 00:45 70 15 10/08/20 00:31 99.1 F 64 64 23 128/81 128/81 10/08/20 00:30 64 18 10/08/20 00:15 68 22 10/08/20 00:01 99.3 F 79 79 21 145/86 H 145/86 H 145/86 H 10/08/20 00:00 83 22 10/07/20 23:48 76 21 135/81 10/07/20 23:46 72 18 10/07/20 23:00 68 18 139/87 10/07/20 22:30 64 18 140/83 10/07/20 22:00 64 20 123/82 10/07/20 21:30 64 18 130/83 10/07/20 21:00 70 18 140/81 10/07/20 20:53 73 18 10/07/20 20:37 63 18 125/82 10/07/20 20:22 73 20 144/88 H 10/07/20 20:07 65 18 142/85 H Pulse Ox 10/08/20 06:31 94 10/08/20 06:30 96 10/08/20 06:01 96 10/08/20 06:00 96 10/08/20 05:31 96 10/08/20 05:30 95 10/08/20 05:02 94 10/08/20 05:01 93 10/08/20 05:00 94 10/08/20 04:31 93 10/08/20 04:30 94 10/08/20 04:02 92 10/08/20 04:01 88 L 10/08/20 04:00 93 10/08/20 03:31 97 10/08/20 03:30 94 10/08/20 03:01 94 10/08/20 03:00 94 10/08/20 02:32 95 10/08/20 02:31 96 10/08/20 02:30 96 10/08/20 02:02 97 10/08/20 02:01 97 10/08/20 02:00 96 10/08/20 01:31 96 10/08/20 01:30 96 10/08/20 01:03 94 10/08/20 01:02 95 10/08/20 01:01 95 10/08/20 01:00 96 10/08/20 00:45 96 10/08/20 00:31 94 10/08/20 00:30 94 10/08/20 00:15 96 10/08/20 00:01 98 10/08/20 00:00 96 10/07/20 23:48 98 10/07/20 23:46 99 10/07/20 23:00 99 10/07/20 22:30 99 10/07/20 22:00 99 10/07/20 21:30 99 10/07/20 21:00 99 10/07/20 20:53 99 10/07/20 20:37 98 10/07/20 20:22 98 10/07/20 20:07 99 I reviewed the vital signs, labs and imaging Coding Level of Care Code 57661 Subseq Hosp Care Lvl 3 Diagnoses Admitted to intensive care unit Z78.9 Acute cerebrovascular accident I63.9 Expressive aphasia R47.01 Acute right-sided weakness R53.1 COVID-19 virus infection U07.1 Received intravenous tissue plasminogen activator (tPA) in emergency department Z92.82
[2020-10-08] MEDS ORDERED: DEXAMETHASONE SOD PHOSPHATE 6 MG in SYRINGE 0 ML IV SCH (09:00)
[2020-10-08] MEDS ORDERED: DEXAMETHASONE SOD INJ 10 MG/ML VIAL IV SCH (09:00)
--- NOTE | 2020-10-08 09:20 | Neurology Consultation ---
Date of Consultation October 08, 2020 Assessment & Plan (1) Expressive aphasia: (2) Acute cerebrovascular accident: (3) Acute right-sided weakness: (4) COVID-19 virus infection: Patient had the acute onset of right-sided weakness and expressive aphasia. His right-sided weakness resolved and has minimal deficit currently. He still has a significant expressive aphasia however. currently his NIH stroke scale score is 3. This is likely due to a small-vessel ischemic stroke. Although he is Covid-19 positive he is asymptomatic and I do not believe his stroke was due to Covid-19. CT angiography of the head and neck were unremarkable. Echocardiogram is pending. MRI of the brain is pending. Recommendations: 1. Awaiting MRI of the brain to evaluate the size / extent of the CVA 2. Awaiting echocardiogram 3. Control blood pressure as you are doing, aiming for a mean arterial pressure of approximately 95-100. 4. awaiting hemoglobin A1c and fasting lipid profile. 5. CT scan of the head 24 hours after tPA as per protocol. Then initiate 81 milligram aspirin tablet daily. 6. Increase activity as able and initiate PT, OT, and especially speech therapy Overall, I spent a total of 90 minutes with this case including review of records, direct evaluation the patient at bedside, and discussing the case with the patient at bedside, RN at bedside, Dr. Parham, and Dr. eKlly, including differential diagnosis and treatment options History of Present Illness Reason for Consultation: patient is a 50-year-old, who I was asked to see at the request of Dr. Roman, for neurologic consultation regarding stroke. Requesting Physician: Dr. Roman Attending Physician: Jabari Kelly MD History of Present Illness patient has little recall of the events that he experienced October 07. Apparently he was in his usual state of health at [facility], where he is an inmate, when at approximately 1645 he had the sudden onset of right arm and leg weakness and expressive aphasia. He was transported to the emergency room. He arrived October 07 at 1754 with a temperature of 36.9, pulse 69, respiratory rate 18, blood pressure 142/99, and O2 saturation 96 percent. He was described as having an expressive aphasia but had no weakness. CT scan of the head was unremarkable. CT angiography of the head and neck were unremarkable without vessel anomaly or stenosis. He was given tPA. He had no further symptoms or issues overnight and has been in normal sinus rhythm. CBC and Chem profile were unremarkable. Urinalysis was unremarkable as was a tox screen. He was positive for Covid-19 (but asymptomatic). This morning he feels very well and does not feel weak or numb. He has no pain or headache. He denies vision problems or confusion. He thinks he is speaking well but clearly has word substitution and some nonsense words the come out as he tries to answer questions. 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 Beliefs That Will Affect Care: None Current Living Situation: Other Current Living Situation Comment: anoop gonzalez Feels Safe at Home: Yes Assistive Devices: None Review of Systems Constitutional: no fever, no fatigue and no weakness Eyes: no diplopia, no eye pain and no worsening vision Ear, Nose, Mouth, Throat: no ear pain, no tinnitus, no hearing loss, no dizziness, no hoarseness and no dysphagia Respiratory: no cough and no dyspnea Cardiovascular: no chest pain, no palpitations and no lightheadedness Gastrointestinal: no abdominal pain, no nausea and no vomiting Genitourinary: no dysuria and no urinary incontinence Musculoskeletal: no back pain, no neck pain, no radicular pain, no joint pain and no myalgia Integumentary: no rash and no lesions Neurologic: + abnormal speech; no gait abnormality, no localized weakness, no generalized weakness, no tingling, no numbness, no tremor(s), no abnormal movements, no headache(s), no confusion and no memory loss Psychiatric: no depression, no irritability, no anxiety, no difficulty concentrating, no confusion and no hallucinations Endocrine: no fatigue and no flushing Hematologic / Lymphatic: no easy bleeding and no easy bruising Allergy / Immunological: no urticaria and no problem reported Exam (Neuro) Physical Exam: The patient stated twice that he is "left handed" but raises up his right-hand when I asked which hand you hold a pen in. The patient is awake, alert, and attentive. Speech is mostly fluent without dysarthria but he has clear word substitution and some nonsense words which he believes are the correct words. He follows one-step commands. He could not tell me his age -he said "40" and when I asked if he was 50 he said no. He cannot state the month. He has poor at naming objects correctly and repeating phrases. Mentation and thought processes are intact Otherwise. Attention and concentration are normal. Mood and affect are normal and appropriate. General appearance and grooming are normal. Short and long-term memory Difficult to evaluate because of his aphasia. The discs are sharp with positive venous pulsations bilaterally. There are no exudates, hemorrhages, or blood vessel changes seen. Pupils are 4 mm bilaterally and reactive to light. Extraocular eye muscles are intact without nystagmus. Visual acuity and visual winter seem normal grossly to confrontation. There are no deficits to sensation in the face in all 3 distributions of the fifth cranial nerve bilaterally. Corneal reflexes are positive bilaterally. Facial strength and symmetry was normal bilaterally. Hearing seems normal to whisper and finger rub bilaterally. Palate moves well without asymmetry. There is normal sternocleidomastoid and trapezius (shoulder shrug) strength bilaterally. Tongue is midline with good strength bilaterally. Neck has a full range of motion without discomfort. There are no cervical bruits bilaterally. There are no cranial or ocular bruits. Heart is without murmur. There is a regular rhythm and rate. Cervical, thoracic, and lumbar spine are nontender to palpation. Gait was not tested but stance sitting up in bed is normal. With outstretched arms there is no drift. There are no resting, postural, or action tremors. There is no ataxia with finger to nose testing. There is A mild decrease in facility in the right hand compared to the left. No other abnormal involuntary movements are noted. Motor strength is 5/5 diffusely in the arms bilaterally including deltoids, biceps, triceps, brachioradialis, wrist flexors and extensors, associate vice president, and intrinsic hand muscles. Motor strength is 5/5 diffusely in the legs bilaterally including hip flexors, quadriceps, hamstrings, gastrocnemius, tibialis anterior, tibialis posterior, and Peroneii muscles. Toe extensors are normal and there is good bulk in the extensor digitorum brevis muscles bilaterally. The limbs have good tone without rigidity or spasticity. There is no atrophy noted in the muscles. Muscle bulk is normal, there is no tenderness to palpation, no myotonia to percussion, and no fasciculations seen. Sensory examination is intact to touch and pin throughout all 4 limbs diffusely. Reflexes are 2/4 in the biceps, triceps, brachioradialis, quadriceps, and Achilles tendons bilaterally. There is no clonus bilaterally. Toes are downgoing with plantar stimulation bilaterally. Peripheral pulses are present and of normal quality distally in all 4 limbs. There is no peripheral edema noted in the limbs. Results & Data ([facility]) Vital Signs (Past 12 Hours) Vital Signs Temp Pulse Pulse Resp BP BP BP 10/08/20 06:31 36.9 C 58 L 58 L 18 119/75 119/75 10/08/20 06:30 60 14 10/08/20 06:01 64 15 138/86 10/08/20 06:00 65 12 10/08/20 05:31 36.9 C 65 65 17 129/80 129/80 10/08/20 05:30 36.9 C 66 19 10/08/20 05:02 59 L 17 10/08/20 05:01 58 L 17 130/80 10/08/20 05:00 58 L 16 10/08/20 04:31 37 C 65 65 16 129/80 129/80 10/08/20 04:30 63 16 10/08/20 04:02 64 15 10/08/20 04:01 67 16 143/85 H 10/08/20 04:00 64 18 10/08/20 03:31 37.1 C 73 73 24 143/100 H 143/100 H 10/08/20 03:30 68 17 10/08/20 03:01 69 17 136/91 10/08/20 03:00 64 17 10/08/20 02:32 65 16 10/08/20 02:31 37.1 C 63 63 16 131/86 131/86 10/08/20 02:30 64 17 10/08/20 02:02 63 16 10/08/20 02:01 37.1 C 62 62 16 127/80 127/80 10/08/20 02:00 62 17 10/08/20 01:31 37.2 C 74 74 19 140/94 140/94 10/08/20 01:30 73 20 10/08/20 01:03 37.3 C 63 16 10/08/20 01:02 66 17 124/84 10/08/20 01:01 37.3 C 66 66 16 127/86 127/86 10/08/20 01:00 63 16 10/08/20 00:45 70 15 10/08/20 00:31 37.3 C 64 64 23 128/81 128/81 10/08/20 00:30 64 18 10/08/20 00:15 68 22 10/08/20 00:01 37.4 C 79 79 21 145/86 H 145/86 H 145/86 H 10/08/20 00:00 83 22 10/07/20 23:48 76 21 135/81 10/07/20 23:46 72 18 10/07/20 23:00 68 18 139/87 10/07/20 22:30 64 18 140/83 10/07/20 22:00 64 20 123/82 10/07/20 21:30 64 18 130/83 Pulse Ox 10/08/20 06:31 94 10/08/20 06:30 96 10/08/20 06:01 96 10/08/20 06:00 96 10/08/20 05:31 96 10/08/20 05:30 95 10/08/20 05:02 94 10/08/20 05:01 93 10/08/20 05:00 94 10/08/20 04:31 93 10/08/20 04:30 94 10/08/20 04:02 92 10/08/20 04:01 88 L 10/08/20 04:00 93 10/08/20 03:31 97 10/08/20 03:30 94 10/08/20 03:01 94 10/08/20 03:00 94 10/08/20 02:32 95 10/08/20 02:31 96 10/08/20 02:30 96 10/08/20 02:02 97 10/08/20 02:01 97 10/08/20 02:00 96 10/08/20 01:31 96 10/08/20 01:30 96 10/08/20 01:03 94 10/08/20 01:02 95 10/08/20 01:01 95 10/08/20 01:00 96 10/08/20 00:45 96 10/08/20 00:31 94 10/08/20 00:30 94 10/08/20 00:15 96 10/08/20 00:01 98 10/08/20 00:00 96 10/07/20 23:48 98 10/07/20 23:46 99 10/07/20 23:00 99 10/07/20 22:30 99 10/07/20 22:00 99 10/07/20 21:30 99 PG Care Time/CCT Total # of Minutes Spent Total Time Spent with Patient: Total time spent is greater than 50% in coordination of care (as documented) at patient's floor/unit and/or counseling patient: Coding Level of Care Code 71811 Inpt Consult Level 5 Diagnoses Expressive aphasia R47.01 Acute cerebrovascular accident I63.9 Acute right-sided weakness R53.1 COVID-19 virus infection U07.1 Time Spent (min) 90
--- NOTE | 2020-10-08 10:37 | XCELERA ---
[id number]
--- NOTE | 2020-10-08 11:38 | XRay Report ---
XR orbits for MRI HISTORY: 50 years-old Male Screening for foreign body for MRI screening for MRI. COMPARISON: Head CT 10/07/2020 TECHNIQUE: 3 views of the orbits FINDINGS: No opaque foreign body in the orbits. No acute fracture. Mastoid air cells and paranasal sinuses appe ar clear. Dental amalgam hardware. IMPRESSION: No opaque foreign body of the orbits. ACT 112: Negative or not required by law. The above report was generated using voice recognition software. It may contain grammatical, syntax o r spelling errors. Electronically signed by: Marcus Miller M.D. 10/08/2020 11:37 AM
--- NOTE | 2020-10-08 11:47 | XRay Report ---
KUB HISTORY: Pre-MRI. COMPARISON: None. FINDINGS: Multiple nondilated gas-filled loops of large and small bowel. No evidence for bowel obstru ction. No metallic foreign bodies. No renal calculi. No ureteral calculi. No pneumoperitoneum or pne umatosis. IMPRESSION: Unremarkable KUB. No metallic foreign bodies identified. ACT 112: Negative or not required by law. Electronically signed by: Kirt Piper M.D. 10/08/2020 11:46 AM
--- NOTE | 2020-10-08 12:57 | Electrocardiogram Report ---
Test Reason : Blood Pressure : / mmHG Vent. Rate : 064 BPM Atrial Rate : 064 BPM P-R Int : 184 ms QRS Dur : 106 ms QT Int : 412 ms P-R-T Axes : 049 -06 008 degrees QTc Int : 425 ms Normal sinus rhythm Normal ECG No previous ECGs available Confirmed by Chandan Molina ([id number]) on 10/08/2020 12:57:18 PM Referred By: [facility] Confirmed By:Shine Molina
--- NOTE | 2020-10-08 14:07 | Hospitalist Progress Note ---
Date of Service October 08, 2020 Assessment & Plan (1) Acute cerebrovascular accident: Acute CVA involving expressive aphasia and acute right upper and right lower extremity weakness. - Received IV TPA in the emergency department on 10/07. - Start ASA 81 mg tomorrow morning. - Continue statin - BP control (2) COVID-19 virus infection: Incidentally found on admission. No signs of hypoxia. Question as to whether increased coagulation associated with COVID-19 virus infection contributed to CVA. Discussed with Dr. Vasquez who feels this is unlikely. - No indication for dexamethasone, convalescent plasma, or remdesivir (3) DVT prophylaxis: SCDs - Until >24 hours after tPA Admission and Anticipated Discharge Date Admission Date: October 07, 2020 Subjective No major concerns at present. He has no pain. He still has some mixed words, but overall seems to be improving. Reports no fevers/chills, chest pain, shortness of breath, abdominal pain, nausea, or vomiting. Physical Exam Constitutional: WD/WN, vitals as above Eyes: EOM intact bilaterally; no conjunctival abnormality ENMT: external ear and nose normal, oropharynx normal Neck: trachea midline, no thyromegaly normal visual inspection Respiratory: normal respiratory effort, lungs clear to auscultation no respiratory distress Cardiovascular: RRR, no murmur, no edema Gastrointestinal (Abdomen): Inspection/Auscultation: abdomen normal to inspection; abdomen not distended Musculoskeletal: no cyanosis or clubbing, extremities motor strength 5/5 Skin: no rashes, warm and dry Neurologic: moves all extremities (Right side slightly weaker) and awake Speech / Cognition: + expressive aphasia; no receptive aphasia Psychiatric: Orientation: alert, oriented to person and cooperative Results & Data Results & Data ([facility]) Vital Signs (Past 12 Hours) Vital Signs Temp Pulse Pulse Resp BP BP Pulse Ox 10/08/20 12:23 36.7 C 65 16 130/77 93 10/08/20 12:14 66 130/77 96 10/08/20 11:23 36.7 C 66 16 130/81 96 10/08/20 11:14 65 119/71 97 10/08/20 10:44 58 L 17 109/68 96 10/08/20 10:23 36.9 C 57 L 17 109/68 96 10/08/20 10:14 59 L 16 108/64 96 10/08/20 09:44 69 19 121/85 98 10/08/20 09:23 36.8 C 66 18 129/78 92 10/08/20 08:23 36.8 C 62 21 130/83 93 10/08/20 08:02 66 135/103 H 90 10/08/20 07:23 36.9 C 65 14 125/76 93 10/08/20 07:01 65 17 127/76 94 10/08/20 06:31 36.9 C 58 L 58 L 18 119/75 119/75 94 10/08/20 06:30 60 14 96 10/08/20 06:01 64 15 138/86 96 10/08/20 06:00 65 12 96 10/08/20 05:31 36.9 C 65 65 17 129/80 129/80 96 10/08/20 05:30 36.9 C 66 19 95 10/08/20 05:02 59 L 17 94 10/08/20 05:01 58 L 17 130/80 93 10/08/20 05:00 58 L 16 94 10/08/20 04:31 37 C 65 65 16 129/80 129/80 93 10/08/20 04:30 63 16 94 10/08/20 04:02 64 15 92 10/08/20 04:01 67 16 143/85 H 88 L 10/08/20 04:00 64 18 93 10/08/20 03:31 37.1 C 73 73 24 143/100 H 143/100 H 97 10/08/20 03:30 68 17 94 10/08/20 03:01 69 17 136/91 94 10/08/20 03:00 64 17 94 10/08/20 02:32 65 16 95 10/08/20 02:31 37.1 C 63 63 16 131/86 131/86 96 10/08/20 02:30 64 17 96 PG Care Time/CCT Total # of Minutes Spent Total Time Spent with Patient: Total time spent is greater than 50% in coordination of care (as documented) at patient's floor/unit and/or counseling patient: Coding Level of Care Code 74511 Subseq Hosp Care Lvl 3 Diagnoses Acute cerebrovascular accident I63.9 COVID-19 virus infection U07.1 DVT prophylaxis Z29.9
[2020-10-08 17:53] LABS: INR 1.3 (0.9-1.1); Partial Thromboplastin Ratio 0.8; Partial Thromboplastin Time 22.5 Seconds (21.0-31.0); Prothrombin Time 13.2 Seconds (9.0-12.0)
[2020-10-08 17:56] LABS: Hematocrit (blood only) 43.9 % (42-52); Immature Granulocytes # (auto) 0.01 K/uL (0.00-0.02); Immature Granulocytes % (auto) 0.2 %; Lymphocytes # (auto) 1.31 K/uL (1.2-3.4); Lymphocytes % (auto) 23.5 %; Mean Corpuscular Hemoglobin 30.8 pg (25-34); Mean Corpuscular Hgb Conc 34.2 g/dL (32-36); Mean Corpuscular Volume 90.1 fL (80-100); Mean Platelet Volume 9.7 fL (7.4-10.4); Monocytes # (auto) 0.25 K/uL (0.11-0.59); Monocytes % (auto) 4.5 %; Neutrophils # (auto) 4.01 K/uL (1.4-6.5); Neutrophils % (auto) 71.8 %; Platelet Count 291 K/uL (130-400); RDW Standard Deviation 46.3 fL (36.4-46.3); Red Blood Count 4.87 M/uL (4.7-6.1); White Blood Count 5.58 K/uL (4.8-10.8)
[2020-10-08 18:17] LABS: Albumin Level 4.2 gm/dl (3.4-5.0); BUN Creatinine Ratio 11.7 (10-20); Bilirubin Direct 0.2 mg/dl (0-0.2); Calcium 9.5 mg/dl (8.5-10.1); Est GFR (African American) 77.7; Magnesium 2.4 mg/dl (1.8-2.4); Potassium 4.5 mmol/L (3.5-5.1)
[2020-10-08 18:21] LABS: Bilirubin,Total 0.6 mg/dl (0.2-1); Phosphorus 3.7 mg/dl (2.5-4.9); Total Protein 9.2 gm/dl (6.4-8.2)
--- NOTE | 2020-10-08 18:28 | CT Scan Report ---
CT head/brain wo con CLINICAL HISTORY: Stroke status post TPA. Evaluate for hemorrhage COMPARISON STUDY: 10/07/2020 TECHNIQUE: Axial CT of the brain is performed from the vertex to the skull base. IV contrast was not administered for this examination. A dose lowering technique was utilized adhering to the principles of ALARA. CT DOSE: 638.56 mGycm FINDINGS: No intra or extra-axial mass lesions are visualized. There is interval development of hypodensities w ithin the left parietal and frontal lobes indicative of subacute infarcts. No macroscopic hemorrhage is visualized. There is no midline shift. There is no evidence of pathologic ventricular dilatation. There is no evidence of acute sinusitis IMPRESSION: 1. Interval development of left frontal lobe and left anterior parietal lobe hypodensities involving both gore and white matter. The findings are consistent with subacute infarcts. No hemorrhage is visu alized. ACT 112: Negative or not required by law. Electronically signed by: Patrick Ying M.D. 10/08/2020 6:27 PM
[2020-10-09 06:24] LABS: Basophils # (auto) 0.01 K/uL (0-0.2); Basophils % (auto) 0.1 %; Eosinophils # (auto) 0.03 K/uL (0-0.5); Eosinophils % (auto) 0.4 %; Hematocrit (blood only) 39.5 % (42-52); Hemoglobin 13.4 g/dL (14.0-18.0); Immature Granulocytes # (auto) 0.02 K/uL (0.00-0.02); Immature Granulocytes % (auto) 0.3 %; Lymphocytes # (auto) 2.54 K/uL (1.2-3.4); Lymphocytes % (auto) 35.2 %; Mean Corpuscular Hemoglobin 30.5 pg (25-34); Mean Corpuscular Hgb Conc 33.9 g/dL (32-36); Mean Platelet Volume 9.2 fL (7.4-10.4); Monocytes # (auto) 0.55 K/uL (0.11-0.59); Monocytes % (auto) 7.6 %; Neutrophils # (auto) 4.07 K/uL (1.4-6.5); Neutrophils % (auto) 56.4 %; Platelet Count 281 K/uL (130-400); RDW Coefficient of Variation 13.9 % (11.5-14.5); RDW Standard Deviation 46.1 fL (36.4-46.3); Red Blood Count 4.39 M/uL (4.7-6.1); White Blood Count 7.22 K/uL (4.8-10.8)
[2020-10-09 06:33] LABS: INR 1.3 (0.9-1.1); Partial Thromboplastin Ratio 0.8; Partial Thromboplastin Time 23.2 Seconds (21.0-31.0); Prothrombin Time 13.9 Seconds (9.0-12.0)
[2020-10-09 06:36] LABS: Estimated Average Glucose 126 mg/dl
[2020-10-09 06:52] LABS: Albumin Level 3.8 gm/dl (3.4-5.0); BUN Creatinine Ratio 15.6 (10-20); Bilirubin Direct 0.2 mg/dl (0-0.2); Calcium 9.1 mg/dl (8.5-10.1); Creatinine Clr Calc Pharmacy 96.9 ml/min; Est GFR (African American) 69.6; Potassium 3.7 mmol/L (3.5-5.1)
[2020-10-09 06:59] LABS: Bilirubin,Total 0.7 mg/dl (0.2-1); Phosphorus 3.8 mg/dl (2.5-4.9); Total Protein 7.8 gm/dl (6.4-8.2)
[2020-10-09] MEDS ORDERED: ATORVASTATIN 40 MG TAB PO SCH (09:00)
[2020-10-09] MEDS ORDERED: ASPIRIN 81 MG ECTAB PO SCH (09:00)
--- NOTE | 2020-10-09 09:54 | Neurology Progress Note ---
Date of Service October 09, 2020 Assessment & Plan (1) Expressive aphasia: (2) Acute cerebrovascular accident: (3) Acute right-sided weakness: (4) COVID-19 virus infection: Patient had the acute onset of right-sided weakness and expressive aphasia resulting in a left hemispheric stroke in the middle cerebral artery distribution ( [address] scan). TPA likely kept this from being a bigger stroke.. His right-sided weakness resolved. He still has a significant expressive aphasia, however, it is improved. currently his NIH stroke scale score is 1 ( Since he can now state the month and his age correctly). This is likely due to a relatively small-vessel ischemic stroke, since CT angiography of the head and neck were unremarkable. Although he is Covid-19 positive he is asymptomatic and I do not believe his stroke was due to Covid-19. he has no evidence for a coagulopathy or large vessel disease. Most Covid-19 related strokes are 1-3 weeks after becoming symptomatic Hemoglobin A1c is 6.0. Total cholesterol was 224 and triglycerides 68. Recommendations: 1. since he is Covid-[address] scan shows obvious stroke we will hold off on MRI for now. 2. Control blood pressure as you are doing, aiming for a mean arterial pressure of approximately 95-100. 3. awaiting hemoglobin A1c and fasting lipid profile. 4. patient would be a high-dose statin candidate. 5. Otherwise, I have no further neurologic testing or treatment recommendations to make at this time. Overall, I spent a total of 35 minutes with this case including review of records, review of CT films, discussion of the CT films with Dr. Alanis, direct evaluation the patient at bedside, and discussion of the case with the patient at bedside, RN at bedside, and Dr. Kelly, including differential diagnosis and treatment options Admission and Anticipated Discharge Date Admission Date: October 07, 2020 Subjective The patient feels well with no weakness or numbness. He thinks his speech is getting better. He denies headache, thought problems, or swallowing issues. Repeat CT scan of the head shows 2 small to medium size acute infarcts 1 in the posterior left frontal and the left parietal head region. There is no hemorrhagic component to these. I reviewed these films. Echocardiogram was unremarkable. Results & Data ([facility]) Vital Signs (Past 12 Hours) Vital Signs Temp Pulse Pulse Resp BP Pulse Ox 10/09/20 08:00 65 10/09/20 04:56 36.8 C 62 18 108/64 93 10/09/20 00:00 69 10/08/20 23:46 36.7 C 76 22 135/76 97 Exam (Neuro) Physical Exam: He is awake and alert. Speech is somewhat improved as he has a little better able to say words. He follows directions well and is pleasant and cooperative. Extraocular eye muscles are intact without nystagmus. There is no facial droop. Tongue is midline. Coordination is normal in the arms. Strength is 5/5 diffusely in the arms and legs both proximally and distally. PG Care Time/CCT Total # of Minutes Spent Total Time Spent with Patient: Total time spent is greater than 50% in coordination of care (as documented) at patient's floor/unit and/or counseling patient: Coding Level of Care Code 55563 Subseq Hosp Care Lvl 3 Diagnoses Expressive aphasia R47.01 Acute cerebrovascular accident I63.9 Acute right-sided weakness R53.1 COVID-19 virus infection U07.1 Time Spent (min) 35
--- NOTE | 2020-10-09 15:45 | Discharge Summary ---
Date of Service October 09, 2020 Admission HPI Per Admitting Provider The patient is a 50-year-old male resident of [facility] who presented to the [facility] there with the above symptoms. He was made a stroke alert in route to the emergency department. Work-up included a CT of head which was negative, CTA head and neck which was negative, and after assessment by [facility] telestroke neurology, patient was given TPA while in the ED. He did have some improvement and the weakness, but his expressive aphasia has been persistent Principal Diagnosis Left MCA stroke Discharge Exam Constitutional WD/WN, vitals as above Eyes EOM intact bilaterally; no conjunctival abnormality ENMT external ear and nose normal, oropharynx normal Neck trachea midline, no thyromegaly normal visual inspection Respiratory normal respiratory effort, lungs clear to auscultation no respiratory distress Cardiovascular RRR, no murmur, no edema Gastrointestinal (Abdomen) Inspection/Auscultation: abdomen normal to inspection; abdomen not distended Musculoskeletal no cyanosis or clubbing, extremities motor strength 5/5 Skin no rashes, warm and dry Neurologic moves all extremities (Right side slightly weaker) and awake Speech / Cognition: + expressive aphasia; no receptive aphasia Psychiatric Orientation: alert, oriented to person and cooperative Discharge Data Allergies Allergy/AdvReac Type Severity Reaction Status Date / Time No Known Allergies Allergy Verified 10/07/20 18:19 Consultations 10/07/20 18:43 ED Decision to Admit Stat 10/07/20 23:49 Consult Case Management - Discharge Planning Routine Consult Case Management - Discharge Planning Routine Consult [employer] Routine Consult Neurology Routine Ordered Studies 10/07/20 17:31 CT angio head w con Stat CT angio neck with con Stat CT head/brain wo con Stat 10/08/20 17:31 CT head/brain wo con Routine Hospital Course (1) Acute cerebrovascular accident: Acute CVA involving expressive aphasia and acute right upper and right lower extremity weakness. - Received IV TPA in the emergency department on 10/07. - Started ASA 81 mg - Continue atorvastatin 40 mg PO QAM - A1c was 6.0% -> Started low-dose metformin 500 mg PO daily - Recommend Holter monitor while in long-term to watch for afib. - BP control. Mostly controlled in the hospital with occasional highs to 160/100 . (2) COVID-19 virus infection: Incidentally found on admission. No signs of hypoxia. Question as to whether increased coagulation associated with COVID-19 virus infection contributed to CVA. Discussed with Dr. Vasquez who feels this is unlikely. - No indication for dexamethasone, convalescent plasma, or remdesivir (3) DVT prophylaxis: SCDs - Until >24 hours after tPA Total Time Total Time Spent Total Time Spent (In Minutes): 35 Discharge Plan Discharge Items [facility]position[facility] Reason For Visit: CVA Discharge Diagnosis: CVA Activity: Resume your previous activity Non-emergency contact: Primary Care Provider and Neurologist Call non-emergency contact if: your symptoms worsen and your pain is not controlled Follow-up/Referrals: Kaycee CABRERA [Primary Care Provider] - Diet: Heart Healthy Addtl Attending Provider Instructions: Mr. Christopher had a stroke of the left MCA distribuation. Started aspirin 81 mg PO daily & atorvastatin 40 mg PO daily. His A1c was 6.0%. Given his age and stroke, started a low-dose metformin ER to help keep blood sugars under control. He tested positive for Covid, but had no symptoms, so no steroids, plasma, or remdesivir was started. Pending Studies at Discharge: No Stand-Alone Forms: [facility] Skilled Items Patient informed of condition?: Yes Discharge Level of Care: Other Communicable Disease: No Discharge Prognosis: Improving Lines: None Urinary Catheter: No Medications and DC Order Prescriptions: New atorvastatin 40 mg Tablet 40 mg PO QAM Qty: 1 RF: 0 aspirin 81 mg Tablet,Delayed Release (Dr/Ec) 81 mg PO QAM Qty: 1 RF: 0 metformin 500 mg tablet extended release 24hr 500 mg PO DAILY Qty: 30 RF: 0 No Action No Known Home Medications RF: 0 Discharge Orders: Discharge Order (Routine); Ordered 10/09/20 Ordered By: Jabari Peñaolza/Other Patient Handouts: Stroke: Taking Medicines, Stroke: Resources and Support, Stroke: Self-Care, Stroke: Tips for Swallowing, Stroke Regaining Movement, Stroke Prevention Activity, A1C Admission Data Admit Date/Time: 10/07/20 21:00 Attending Provider: Jabari Kelly Admit Provider: Marcus Roman Primary Care Provider: Kaycee CABRERA Other Providers: Jabari Kelly ; Víctor Geller Vyacheslav ; Mustapha,Stefano A. Other Interventions: Discharge Summary Assessment (RN) Last Done: 10/09/20 14:38 Coding Level of Care Code D/C Day Management >30 mins Diagnoses Acute cerebrovascular accident I63.9 COVID-19 virus infection U07.1 DVT prophylaxis Z29.9
== END 2020-10-09 15:40 | DRG 61 ==
LOC: ED 17:37 → SUATTDRO 21:00 → 1E 21:00 → 2E 10-08 13:18